=== PATIENT | male | born 1955 | race Caucasian/White ===

== ENCOUNTER → 2018-03-18 | Outpatient (CLI) | payer BC | LOC: RESP 20:59 | PROVIDERS: ATTEND Physician Assistant | DX: G47.33 Obstructive sleep apnea (adult) (pediatric) (principal); G47.61 Periodic limb movement disorder; G47.36 Sleep related hypoventilation in conditions classified elsewhere; E66.3 Overweight ==

== ENCOUNTER → 2018-04-09 | Outpatient (CLI) | payer BC | LOC: RESP 20:45 | PROVIDERS: ATTEND Physician Assistant | DX: G47.33 Obstructive sleep apnea (adult) (pediatric) (principal) ==

== ENCOUNTER 2018-09-24 02:39 | Day surgery (SDC) | payer BC ==
[~2018-09-24] VITALS: Ht 182.9 cm; Wt 83.0 kg
[~2018-09-24 02:39] MED LIST: ACET-2708 PO; ASPI-1471 PO; MULT-1335 PO; ROSU20TA23 PO
[2018-09-24 07:46] VITALS: BP 130/88
[2018-09-24] MEDS ORDERED: LIDOCAINE/SOD BICARB 8.4% SYR ID ONE (07:55)
[2018-09-24] MEDS ORDERED: NORMOSOL R SOLN(*) 1000 ML BAG 1,000 ML IV PRN (07:55)
[2018-09-24] MEDS ORDERED: LIDOCAINE MPF 1% 5 ML VIAL ONE (08:26)
[2018-09-24] MEDS ORDERED: PROPOFOL EMUL(*) 10MG/ML 20 ML 40 ML ONE (08:26)
[2018-09-24 09:40] VITALS: BP 116/72
[2018-09-24 09:45] VITALS: BP 108/76
[2018-09-24 10:00] VITALS: BP 120/84
[2018-09-24 10:06] VITALS: BP 116/85
[2018-09-24 10:07] VITALS: BP 112/87
== END 2018-09-24 10:30 | disposition home or self-care (01) ==
LOC: OR 02:39
PROVIDERS: ATTEND Family Medicine
DX: Z12.11 Encounter for screening for malignant neoplasm of colon (principal); D12.2 Benign neoplasm of ascending colon; D12.4 Benign neoplasm of descending colon
CPT/HCPCS: 00811; 45380; 88305; J2001; J2704